=== PATIENT | male | born 1955 | race Caucasian/White ===

== ENCOUNTER 2017-10-17 18:15 | Emergency (ER) | payer BC ==
[2017-10-17] MEDS ORDERED: BABY ASPIRIN 81 MG CHEW PO ONE (18:17)
[2017-10-17] MEDS ORDERED: NITRO-BID 2% UD PACKETS TOP ONE (18:17)
[2017-10-17] MEDS ORDERED: BABY ASPIRIN 81 MG CHEW ONE (18:25)
--- NOTE | 2017-10-17 18:25 | ERPHSYRPT ---
<NAZ ARCEO - Last Filed: 10/17/17 19:14> - History of Present Illness Time Seen by Provider: 10/17/17 18:17 Historian: patient, family, EMS, old records Exam Limitations: no limitations Physician History: CP onset this afternoon- substernal- radiates to left arm- took two 9@) ntg and got releif; no sob or N&V; no diaphoresis; admitted to [facility] Saturday for CP with Normal ekg but elevated Troponin; signed out AMA; he of prior cardiacs with stents; no other complaints; no ASA today Timing/Duration: today, hour(s) (2), resolved prior to arrival, sudden, improved Activities at Onset: rest Quality: fullness, pressure, tightness Location: substernal Chest Pain Radiation: arm (left) Severity of Pain-Max: severe Severity of Pain-Current: mild Modifying Factors: Improves With: other (NTG) Associated Symptoms: denies symptoms Prior Chest Pain/Cardiac Workup: cardiac cath, heart attack, recently seen/ treated, recent hospitalization Nitro Today/Relief: 0.4 mg x 2, complete relief Aspirin Treatment Today: no aspirin today Allergies/Adverse Reactions: No Known Drug Allergies Allergy (Unverified 10/17/17 18:31) Home Medications: Carvedilol 10/17/17 [History] Lisinopril 10/17/17 [History] Meloxicam 15 mg [Meloxicam 15 MG] 10/17/17 [History] Nitroglycerin 10/17/17 [History] - Review of Systems Constitutional: No Symptoms Eyes: No Symptoms Ears, Nose, & Throat: No Symptoms Respiratory: No Cough, No Dyspnea, No Wheezing Cardiac: Chest Pain, No Edema, No Palpitations, No Syncope, No Orthopnea Abdominal/Gastrointestinal: No Abdominal Pain, No Nausea, No Vomiting, No Diarrhea Genitourinary Symptoms: No Symptoms Musculoskeletal: No Symptoms Skin: No Symptoms Neurological: No Symptoms Psychological: No Symptoms Endocrine: No Symptoms Hematologic/Lymphatic: No Symptoms Immunological/Allergic: No Symptoms - Past Medical History Pertinent Past Medical History: Yes Cardiac History: Angina, Coronary Artery Disease, High Cholesterol, Hypertension , Myocardial Infarction ([place]) - Past Surgical History Past Surgical History: Yes Cardiac: Angioplasty, Cardiac Catheterization, Cardiac Stent - Social History Smoking Status: Current every day smoker Exposure to second hand smoke: Yes Alcohol Use: Socially Drug Use: none Patient Lives Alone: No Significant Family History: heart disease, hypertension - Female History Hx Now: No - Nursing Vital Signs Nursing Vital Signs: Initial Vital Signs Temperature 97.9 F 10/17/17 18:18 Pulse Rate 69 10/17/17 18:18 Respiratory Rate 18 10/17/17 18:18 Blood Pressure 139/84 10/17/17 18:18 O2 Sat by Pulse Oximetry 98 10/17/17 18:18 Pain Scale Pain Intensity 0 - Physical Exam General Appearance: moderate distress, alert, anxiety, thin Eye Exam: PERRL/EOMI, eyes nml inspection Ears, Nose, Throat Exam: normal ENT inspection, TMs normal, pharynx normal, moist mucous membranes Neck Exam: normal inspection, non-tender, supple, full range of motion, No carotid bruit, No JVD Respiratory Exam: airway intact, diminished breath sounds, wheezing, No normal breath sounds, No chest tenderness, No lungs clear, No respiratory distress, No crackles/rales, No rhonchi Cardiovascular Exam: regular rate/rhythm, normal heart sounds, normal peripheral pulses, capillary refill 2-3 sec, No murmur Gastrointestinal/Abdomen Exam: soft, normal bowel sounds, No tenderness, No mass , No guarding, No rebound, No organomegaly Rectal Exam: deferred Back Exam: normal inspection, normal range of motion, No CVA tenderness, No vertebral tenderness Extremity Exam: normal inspection, normal range of motion, No emmanuel's sign Neurologic Exam: alert, oriented x 3, cooperative, desk editor II-XII nml as tested, No normal mood/affect (anxious) Skin Exam: normal color, warm, dry, No rash, No petechiae, No cyanosis SpO2 Interpretation: normal SpO2: 95 Oxygen Delivery: Room Air - Course Nursing assessment & vital signs reviewed: Yes EKG Interpreted by Me: RATE (65), Sinus Rhythm, NORMAL AXIS, NORMAL INTERVALS, NORMAL QRS, Non-specific ST Changes, Other (flat T's [id number] from ) Rhythm Strip: Rate (66), Normal Sinus Rhythm - Radiology Exams Chest X-ray Interpretation: Interpreted by me, No Pneumonia, No Pneumothorax, Nml Heart Size, No Infiltrates, Other (COPD and aging chest) Ordered Tests: Active Orders 24 hr Category Date Time Status [employer] Specialist STAT Care 10/17/17 18:17 Active EKG-ER Only STAT Care 10/17/17 18:17 Active IV Insertion STAT Care 10/17/17 18:17 Active Pulse Oximetry (ED) STAT Care 10/17/17 18:17 Active Re-Check Vital Signs STAT Care 10/17/17 18:17 Active CHEST 1 VIEW (PORTABLE) Stat Exams 10/17/17 18:17 Taken CBC W DIFF Stat Lab 10/17/17 18:25 Completed CMP Stat Lab 10/17/17 18:25 Completed NT PRO BNP Stat Lab 10/17/17 18:25 Completed PROTIME WITH INR Stat Lab 10/17/17 18:25 Completed TROPONIN Q3H Lab 10/17/17 18:25 Completed TROPONIN Q3H Lab 10/17/17 21:30 Ordered TROPONIN Q3H Lab 10/18/17 00:30 Ordered TROPONIN Q3H Lab 10/18/17 03:30 Ordered TROPONIN Q3H Lab 10/18/17 06:30 Ordered Medication Summary Generic Name Dose Route Start Last Admin Trade Name Freq PRN Reason Stop Dose Admin Sodium Chloride 1,000 mls @ 50 mls/hr 10/17/17 18:30 10/17/17 18:33 Sodium Chloride 0.9% 1000 Ml IV 11/16/17 18:29 50 mls/hr .Q20H TIAN Administration Discontinued Medications Generic Name Dose Route Start Last Admin Trade Name Freq PRN Reason Stop Dose Admin Aspirin 324 mg 10/17/17 18:17 10/17/17 18:32 Baby Aspirin 81 Mg Chew PO 10/17/17 18:18 324 mg STAT ONE Administration Aspirin Confirm 10/17/17 18:25 Baby Aspirin 81 Mg Chew Administered 10/17/17 18:26 Dose 324 mg .ROUTE .STK-MED ONE Nitroglycerin 1 gm 10/17/17 18:17 10/17/17 18:32 Nitro-Bid 2% Ud Packets TOP 10/17/17 18:18 1 gm STAT ONE Administration Nitroglycerin Confirm 10/17/17 18:26 Nitro-Bid 2% Ud Packets Administered 10/17/17 18:27 Dose 1 gm .ROUTE .STK-MED ONE Lab/Rad Data: Laboratory Result Diagrams 10/17/17 18:25 10/17/17 18:25 Laboratory Results 10/17/17 10/17/17 10/17/17 Range/Units 18:25 18:25 18:25 WBC (4.0-10.5) K/mm3 RBC (4.1-5.6) M/mm3 Hgb (12.5-18.0) gm/dl Hct (42-50) % MCV (78-100) fl MCH (26-32) pg MCHC (32-36) g/dl RDW (11.5-14.0) % Plt Count (150-450) K/mm3 MPV (6-9.5) fl Gran % (36.0-66.0) % Eos # (Auto) (0-0.5) Absolute Lymphs (auto) (1.0-4.6) Absolute Monos (auto) (0.0-1.3) Lymphocytes % (24.0-44.0) % Monocytes % (0.0-12.0) % Eosinophils % (0.00-5.0) % Basophils % (0.0-0.4) % Absolute Granulocytes (1.4-6.9) Basophils # (0-0.4) PT 12.4 (8.83-12.87) SECONDS INR 1.07 (0.8-3.0) Sodium 140 (137-145) mmol/L Potassium 3.8 (3.5-5.1) mmol/L Chloride 107 (98-107) mmol/L Carbon Dioxide 24 (22-30) mmol/L Anion Gap 13.0 (5-15) MEQ/L BUN 17 (9-20) mg/dL Creatinine 0.69 (0.66-1.25) mg/dL Estimated GFR > 60.0 ML/MIN Glucose 134 H (74-106) mg/dL Calcium 9.4 (8.4-10.2) mg/dL Total Bilirubin 0.30 (0.2-1.3) mg/dL AST 22 (17-59) U/L ALT 22 (0-50) U/L Alkaline Phosphatase 44 (38-126) U/L Troponin I 0.903 H* (0.000-0.034) ng/mL NT-Pro-B Natriuret Pep 224 (0-900) pg/mL Serum Total Protein 7.0 (6.3-8.2) g/dL Albumin 4.3 (3.5-5.0) g/dL 10/17/17 Range/Units 18:25 WBC 12.7 H (4.0-10.5) K/mm3 RBC 4.48 (4.1-5.6) M/mm3 Hgb 14.5 (12.5-18.0) gm/dl Hct 41.6 L (42-50) % MCV 92.9 (78-100) fl MCH 32.4 H (26-32) pg MCHC 34.9 (32-36) g/dl RDW 13.7 (11.5-14.0) % Plt Count 318 (150-450) K/mm3 MPV 10.5 H (6-9.5) fl Gran % 62.6 (36.0-66.0) % Eos # (Auto) 0.57 H (0-0.5) Absolute Lymphs (auto) 3.29 (1.0-4.6) Absolute Monos (auto) 0.85 (0.0-1.3) Lymphocytes % 26.0 (24.0-44.0) % Monocytes % 6.7 (0.0-12.0) % Eosinophils % 4.5 (0.00-5.0) % Basophils % 0.2 (0.0-0.4) % Absolute Granulocytes 7.93 H (1.4-6.9) Basophils # 0.03 (0-0.4) PT (8.83-12.87) SECONDS INR (0.8-3.0) Sodium (137-145) mmol/L Potassium (3.5-5.1) mmol/L Chloride (98-107) mmol/L Carbon Dioxide (22-30) mmol/L Anion Gap (5-15) MEQ/L BUN (9-20) mg/dL Creatinine (0.66-1.25) mg/dL Estimated GFR ML/MIN Glucose (74-106) mg/dL Calcium (8.4-10.2) mg/dL Total Bilirubin (0.2-1.3) mg/dL AST (17-59) U/L ALT (0-50) U/L Alkaline Phosphatase (38-126) U/L Troponin I (0.000-0.034) ng/mL NT-Pro-B Natriuret Pep (0-900) pg/mL Serum Total Protein (6.3-8.2) g/dL Albumin (3.5-5.0) g/dL - Progress Progress: improved (after meds), re-examined (after meds and ekg) Air Movement: fair Progress Note: 10/17/17 18:27 EKG non specific; no acute changes; cxr pending; ASA and NTG given; will monitor andd recheck, lab pending 10/17/17 18:58 improved after meds; CXR nad; labs pending; at bedside Counseled pt/family regarding: lab results, diagnosis, need for follow-up, rad results, smoking cessation - Departure Clinical Impression: Chest pain, Elevated troponin Condition: Stable Referrals: CANDICE HOOKER MD [Primary Care Provider] - <MAGDIEL MCKOY - Last Filed: 10/17/17 20:05> - Progress Progress Note: 10/17/17 19:32 Pt care dscussed and care accepted from Dr Arceo at 19:00. - Departure Time of Disposition: 20:02 Departure Disposition: Transfer (transfer to [facility] per Dr Horta) Critical Care Time: No
[2017-10-17] MEDS ORDERED: NITRO-BID 2% UD PACKETS ONE (18:26)
[2017-10-17] MEDS ORDERED: Sodium Chloride 0.9% 1000 ML 1,000 ML ONE (18:26)
[2017-10-17] MEDS ORDERED: Sodium Chloride 0.9% 1000 ML 1,000 ML IV SCH (18:30)
[2017-10-17 18:52] LABS: BASOPHIL % 0.2 % (0.0-0.4); Basophil (Absolute #) 0.03 (0-0.4); Eosinophil % 4.5 % (0.00-5.0); Eosinophil (Absolute #) 0.57 (0-0.5); Granulocyte Absolute (ANC) 7.93 (1.4-6.9); Granulocytes % 62.6 % (36.0-66.0); Hematocrit 41.6 % (42-50); Hemoglobin 14.5 gm/dl (12.5-18.0); Lymphocyte (Absolute #) 3.29 (1.0-4.6); Mean Cell Volume 92.9 fl (78-100); Mean Corpuscular Hemoglobin 32.4 pg (26-32); Mean Corpuscular Hgb Concent. 34.9 g/dl (32-36); Mean Platelet Volume 10.5 fl (6-9.5); Monocyte (Absolute #) 0.85 (0.0-1.3); Monocytes % 6.7 % (0.0-12.0); Platelet Count 318 K/mm3 (150-450); Red Blood Count 4.48 M/mm3 (4.1-5.6); Red Cell Distribution Width 13.7 % (11.5-14.0); White Blood Count 12.7 K/mm3 (4.0-10.5)
[2017-10-17 18:54] LABS: INR 1.07 (0.8-3.0)
[2017-10-17 18:59] VITALS: O2SAT 95
[2017-10-17 19:08] LABS: ALBUMIN 4.3 g/dL (3.5-5.0); ALKALINE PHOSPHATASE 44 U/L (38-126); BLOOD UREA NITROGEN 17 mg/dL (9-20); CHLORIDE 107 mmol/L (98-107); Calcium 9.4 mg/dL (8.4-10.2); Carbon Dioxide 24 mmol/L (22-30); Creatinine 1 0.69 mg/dL (0.66-1.25); Glucose 134 mg/dL (74-106); NT PRO BNP 224 pg/mL (0-900); Potassium 3.8 mmol/L (3.5-5.1); SGOT/AST 22 U/L (17-59); SGPT/ALT 22 U/L (0-50); SODIUM 140 mmol/L (137-145)
[2017-10-17 19:46] VITALS: BP 116/76; PULSE 72
--- NOTE | 2017-10-18 08:36 | XRAY ---
Indication: Chest pain. Comparison: December 29, 2016. Portable chest is better inflated today and clear. Heart and mediastinal structures within normal limits. Bony thorax intact. Impression: Nonacute chest.
== END 2017-10-17 20:43 | disposition short-term general hospital (02) ==
LOC: ED 18:15
DX: R07.9 Chest pain, unspecified (principal); R77.8 Other specified abnormalities of plasma proteins; Z79.899 Other long term (current) drug therapy; I10 Essential (primary) hypertension
CPT/HCPCS: 36415; 71045; 80053; 83880; 84484; 85025; 85610; 93005; 93041; 96360; 99285; A9270-GY